=== PATIENT | female | born 1995 | race Caucasian/White ===

== ENCOUNTER 2025-06-22 13:08 | Emergency (ER) | payer SELFPAY ==
[~2025-06-22] VITALS: Ht 172.7 cm; Wt 82.0 kg
[2025-06-22 13:12] VITALS: BP 121/83; PULSE 99; RESP 18; TEMP 37; O2SAT 100
== END 2025-06-22 13:52 ==
LOC: ER 13:08
DX: S91.311A Laceration without foreign body, right foot, initial encounter (principal); G40.909 Epilepsy, unspecified, not intractable, without status epilepticus; Z02.89 Encounter for other administrative examinations; X58.XXXA Exposure to other specified factors, initial encounter; Y93.89 Activity, other specified; Y92.89 Other specified places as the place of occurrence of the external cause; Y99.8 Other external cause status
CPT/HCPCS: 99283